=== PATIENT | male | born 1995 | race Hispanic/Latino ===

== ENCOUNTER 2018-01-09 22:50 | Emergency (ER) | payer SELFPAY ==
[~2018-01-09] VITALS: Ht 185.4 cm; Wt 113.0 kg
[~2018-01-09 22:50] MED LIST: BACTROBAN2 % EX; KEFLEX500 MG PO; LORTAB 5 OR; NO
[2018-01-10] MEDS ORDERED: DIPHENHYDRAM50 M2 PO (01:15)
[2018-01-10 02:21] VITALS: BP 122/67
== END 2018-01-10 02:11 | disposition home or self-care (01) | DRG 607 ==
LOC: ED 22:50
DX: L50.9 Urticaria, unspecified (principal)

== ENCOUNTER 2022-02-28 18:43 | Emergency (ER) | payer SELFPAY ==
[~2022-02-28] VITALS: Ht 185.4 cm; Wt 123.0 kg
[~2022-02-28 18:43] MED LIST changes: +DIPHENHYDRAM50 M2 PO
[2022-02-28 18:54] VITALS: BP 125/70
[2022-02-28 19:01] VITALS: BP 133/82
[2022-02-28 19:35] LABS: HEMATOCRIT 43.4 % (39.0-50.0); IMMATURE GRANULOCYTES 0.2 % (0.0-5.0); MEAN CELL VOLUME 84.9 fL CALC (80.0-100.0); MEAN CORPUSCULAR HGB 29.4 pG CALC (26.0-32.0); MEAN CORPUSCULAR HGB CONC 34.6 g/dL CAL (32.0-36.0); NEUT# 4.77 thou/uL (1.82-7.42); RED BLOOD COUNT 5.11 mill/uL (4.70-6.10); RED CELL DISTRI WIDTH 12.3 % (11.5-15.5)
[2022-02-28 19:56] LABS: ALBUMIN 4.8 g/dL (3.2-5.0); ALKALINE PHOSPHATASE 59 u/l (38-126); AMYLASE 99 u/l (30-110); ANION GAP 13 (6-22 (CALC)); BUN 15 mg/dL (9-20); BUN/CREATININE RATIO 14 (12-20 (CALC)); CARBON DIOXIDE 29 mmol/l (22-30); CHLORIDE 104 mmol/l (95-108); CREATININE 1.1 mg/dL (0.7-1.3); GFR FOR AFR.AMER. > 60 ML/MIN (>=60 (CALC)); GFR OTHER RACES > 60 ML/MIN (>=60 (CALC)); POTASSIUM 4.1 mmol/l (3.5-5.1); SGOT/AST 80 u/l (17-59); SODIUM 142 mmol/l (137-146); TOTAL PROTEIN 7.8 g/dL (6.3-8.2)
[2022-02-28 20:06] LABS: MYOGLOBIN 80 ng/mL (0 - 121)
[2022-02-28 20:32] LABS: URINE BILIRUBIN - DIPSTICK NEGATIVE (NEGATIVE); URINE BLOOD DIPSTICK NEGATIVE (NEGATIVE); URINE COLOR YELLOW; URINE GLUCOSE - DIPSTICK NEGATIVE (NEGATIVE); URINE KETONE NEGATIVE (NEGATIVE); URINE LEUK ESTERASE NEGATIVE (NEGATIVE); URINE PROTEIN - DIPSTICK NEGATIVE (NEG-TRACE)
[2022-02-28 20:34] LABS: URINE NITRITE - DIPSTICK NEGATIVE (Negative)
[2022-02-28 21:19] VITALS: BP 126/62
[2022-02-28] MEDS ORDERED: NAPROXEN500 MG PO (21:25)
[2022-02-28 21:30] VITALS: BP 126/75
[2022-02-28 21:46] VITALS: BP 125/84
== END 2022-02-28 21:50 | disposition home or self-care (01) | DRG 313 ==
LOC: ED 18:43
PROVIDERS: Emergency Medicine
DX: R07.89 Other chest pain (principal); F14.10 Cocaine abuse, uncomplicated; R74.01 Elevation of levels of liver transaminase levels